=== PATIENT | female | born 1925 | race Caucasian/White ===

== ENCOUNTER → 2016-07-31 | Outpatient (CLI) | payer MEDICARE, BC ==
[~2016-07-31] MED LIST: BACTRIM DS TAB1 EACH PO; BYSTOLIC10 MG PO; CENTRUM COMPLE1 EACH PO; CORDARONE 200M200 MG PO; ELIQUIS2.5 MG PO; LASIX20 MG PO; LISINOPRIL20 MG PO; LOPRESSOR 25 MG25 MG PO; MULTAQ400 MG PO; OCUVITE SOFTGE1 EACH PO; TYLENOL 500 MG500 MG PO
== END ==
LOC: LAB 12:20
PROVIDERS: Internal Medicine Cardiovascular Disease
DX: I10 Essential (primary) hypertension (principal); I48.91 Unspecified atrial fibrillation; R60.9 Edema, unspecified
CPT/HCPCS: 36415; 80048; 83880

== ENCOUNTER 2016-08-11 20:28 | Inpatient (IN) | payer MEDICARE, BC ==
[~2016-08-11] VITALS: Ht 161.3 cm; Wt 78.5 kg
[2016-08-11 21:14] LABS: RED BLOOD COUNT 4.41 M/UL (4.00-5.10); WHITE BLOOD COUNT 8.8 K/UL (4.5-11.0)
[2016-08-12] MEDS ORDERED: MULTAQ400 MG PO (00:55)
[2016-08-12] MEDS ORDERED: BYSTOLIC10 MG PO (00:56)
[2016-08-12] MEDS ORDERED: LISINOPRIL20 MG PO (00:56)
[2016-08-12] MEDS ORDERED: ELIQUIS2.5 MG PO (00:56)
[2016-08-12] MEDS ORDERED: CENTRUM COMPLE1 EACH PO (00:57)
[2016-08-12] MEDS ORDERED: OCUVITE SOFTGE1 EACH PO (00:57)
[2016-08-12] MEDS ORDERED: LASIX20 MG PO (00:58)
[2016-08-12] MEDS ORDERED: TYLENOL 500 MG500 MG PO (00:58)
[2016-08-13 03:43] LABS: HEMOGLOBIN 12.2 gm/dl (12.3-15.3); WHITE BLOOD COUNT 8.2 K/UL (4.5-11.0)
[2016-08-13 03:48] LABS: RED BLOOD COUNT 3.89 M/UL (4.00-5.10)
[2016-08-14 05:11] LABS: HEMOGLOBIN 13.4 gm/dl (12.3-15.3); RED BLOOD COUNT 4.24 M/UL (4.00-5.10); WHITE BLOOD COUNT 8.6 K/UL (4.5-11.0)
[2016-08-14 05:29] LABS: BUN/CREATININE RATIO 31 (0-10)
[2016-08-16 05:54] LABS: HEMOGLOBIN 13.6 gm/dl (12.3-15.3); RED BLOOD COUNT 4.34 M/UL (4.00-5.10)
[2016-08-16 06:14] LABS: BUN/CREATININE RATIO 27 (0-10)
[2016-08-16] MEDS ORDERED: CORDARONE 200M200 MG PO (10:03)
[2016-08-16] MEDS ORDERED: LOPRESSOR 25 MG25 MG PO (10:04)
[2016-08-16] MEDS ORDERED: BACTRIM DS TAB1 EACH PO (10:06)
--- NOTE | 2016-08-16 12:19 | NUR ---
08/16/16 1200 REPORT CALLED TO [employer] [employer] RN RECEIVING. ASSIGNED TO ROOM 12B ON LB WING. [facility] NOTIFIED OF NEED FOR TRANSFER.
== END 2016-08-16 12:50 | DRG 602 ==
LOC: ER1 20:28 → PROG CARE 23:43 → ZEROF 23:43 → MED SURG 4 08-12 00:41 → CCU 08-12 16:52 → PROG CARE 08-12 22:31
PROVIDERS: Emergency Medicine; Family Medicine; ADMIT Family Medicine
PROC: 5A2204Z Restoration of Cardiac Rhythm, Single (ICD-10-PCS; principal; 2016-08-15)
DX: L03.116 Cellulitis of left lower limb (principal); I50.33 Acute on chronic diastolic (congestive) heart failure; N17.9 Acute kidney failure, unspecified; I48.1 Persistent atrial fibrillation; E86.0 Dehydration; I95.9 Hypotension, unspecified; I11.0 Hypertensive heart disease with heart failure; F03.90 Unspecified dementia, unspecified severity, without behavioral disturbance, psychotic disturbance, mood disturbance, and anxiety; I87.8 Other specified disorders of veins; M19.90 Unspecified osteoarthritis, unspecified site; R06.02 Shortness of breath; G89.29 Other chronic pain; M25.552 Pain in left hip; M25.551 Pain in right hip; M25.562 Pain in left knee; M25.561 Pain in right knee; Z79.899 Other long term (current) drug therapy; Z79.01 Long term (current) use of anticoagulants; Z96.1 Presence of intraocular lens; Z85.828 Personal history of other malignant neoplasm of skin; Z88.8 Allergy status to other drugs, medicaments and biological substances
CPT/HCPCS: ECHO; 36415; 71010; 80048; 80053; 80162; 80202; 81001; 82550; 82553; 83735; 83874; 84439; 84443; 84484; 85025; 85027; 87040; 87086; 92960; 93005; 93306; 96360; 96361; 99285; J1160; J1200; J1335; J2250; J2760; J3370; J3480; J7030; J7040; J7050; J7070; Q0177

== ENCOUNTER 2016-08-20 07:57 | Emergency (ER) | payer MEDICARE, BC ==
[2016-08-20 08:34] LABS: HEMOGLOBIN 15.1 gm/dl (12.3-15.3); RED BLOOD COUNT 4.77 M/UL (4.00-5.10); WHITE BLOOD COUNT 8.7 K/UL (4.5-11.0)
[2016-08-20 10:05] LABS: BUN/CREATININE RATIO 44 (0-10)
== END 2016-08-20 13:10 ==
LOC: ER1 07:57
PROVIDERS: Emergency Medicine
DX: I11.0 Hypertensive heart disease with heart failure (principal); I50.9 Heart failure, unspecified; I48.91 Unspecified atrial fibrillation; Z88.6 Allergy status to analgesic agent
CPT/HCPCS: 36415; 36600; 51702; 71010; 71250; 80053; 81001; 82550; 82553; 82803; 83874; 84484; 85025; 85610; 85730; 93005; 94660; 96374; 96375; 96376; 99285; J1940